=== PATIENT | male | born 1945 | race Caucasian/White ===

== ENCOUNTER 2022-12-18 17:42 | Emergency (ER) | payer OTHER, MEDICAID ==
[~2022-12-18] VITALS: Ht 172.7 cm; Wt 73.5 kg
[2022-12-18 17:45] VITALS: BP_SYST 125
--- NOTE | 2022-12-18 17:45 | NUR ---
Patient triaged and placed in waiting room. VSS and patient appears in no acute distress at this time. Accompanied by CAREGIVER, awaiting available bed, and MD notified of need for MSE.
--- NOTE | 2022-12-18 19:11 | NUR ---
ER Dr.Dela Santoro examining patient in the WR.
[2022-12-18] MEDS ORDERED: ACET-2634 PO (20:07)
[2022-12-18] MEDS ORDERED: LIDO1ADH71 TD (20:07)
[2022-12-18 20:25] VITALS: BP_SYST 129
--- NOTE | 2022-12-18 20:25 | NUR ---
Patient and wound care center consultant given written and verbal discharge instructions and verbalizes understanding. ER MD discussed with patient the results and treatment provided. Patient in stable condition. ID arm band removed. Rx of Tylenol and lidocaine patch given. Patient educated on pain management and to follow up with PMD. Pain Scale 0/10. Opportunity for questions provided and answered. Medication side effect fact sheet provided.
== END 2022-12-18 20:25 | disposition home or self-care (01) ==
LOC: SED 17:42
DX: S00.03XA Contusion of scalp, initial encounter (principal); Z79.899 Other long term (current) drug therapy; W19.XXXA Unspecified fall, initial encounter; Y93.A1 Activity, exercise machines primarily for cardiorespiratory conditioning; Y92.89 Other specified places as the place of occurrence of the external cause; Y99.8 Other external cause status
CPT/HCPCS: 70450-TC; 72125-TC; 76376; 99284